=== PATIENT | female | born 1985 | race African-American/Black ===

== ENCOUNTER 2020-11-28 07:38 | Emergency (ER) | payer SELFPAY ==
[~2020-11-28] VITALS: Ht 170.2 cm; Wt 118.0 kg
[2020-11-28 07:40] VITALS: BP 139/78
[2020-11-28] MEDS ORDERED: ALBUTEROL (0.083%) 2.5MG/3ML NEB HHN STA (08:11)
[2020-11-28] MEDS ORDERED: IPRATROPIUM BROMIDE (0.02%) 0.5MG/2.5ML NEB HHN STA (08:11)
[2020-11-28] MEDS ORDERED: ALBU6.7H9 INH (08:41)
== END 2020-11-28 09:25 | disposition home or self-care (01) ==
LOC: ER 07:38
DX: J45.901 Unspecified asthma with (acute) exacerbation (principal); F17.200 Nicotine dependence, unspecified, uncomplicated; Z90.49 Acquired absence of other specified parts of digestive tract; Z98.890 Other specified postprocedural states
CPT/HCPCS: 94640; 99283; Z7610